=== PATIENT | male | born 1975 | race Caucasian/White ===

== ENCOUNTER 2016-06-16 10:47 | Emergency (ER) | payer SELFPAY ==
[~2016-06-16] VITALS: Ht 165.1 cm; Wt 92.0 kg
[~2016-06-16 10:47] MED LIST: CHLO.12%30 SSP; IBUP800T23 PO
[2016-06-16 10:49] VITALS: BP 142/88; PULSE 78; RESP 16; TEMP 98; O2SAT 98
[2016-06-16] MEDS ORDERED: IBUP-232 PO (11:10)
[2016-06-16] MEDS ORDERED: PENI500T PO (11:10)
--- NOTE | 2016-06-16 11:10 | PD ---
HPI Chief Complaint: Oral / Dental Pain or Problem Time Seen by Provider: 10:56 Travel History International Travel<30 days: No Contact w/Intl Traveler<30days: No Traveled to known affect area: No History of Present Illness HPI 41-year-old male complains of gum irritation and also a lump in the right lower lip. Patient states that he noticed a lump in the right lower lips for the past few days. Patient denies any pain. Patient states that he has some gum irritation. Patient denies any fever chills coughing congestion. PFSH Past Medical History Immunizations Current: Yes Social History Alcohol Use: Yes (ONCE A WEEK) Tobacco Use: Yes (BLACK AND MILDS) Substance Use: No (DENIES SUBSTANCE ABUSE) Allergies-Medications (Allergen,Severity, Reaction): Coded Allergies: Shellfish (Verified Allergy, Severe, SWELLING, 03/11/15) Reported Meds & Prescriptions Reported Meds & Active Scripts Active Ibuprofen 800 Mg Tab 800 Mg PO Q8HR PRN Peridex Oral Rinse (Chlorhexidine Gluconate) 0.12 % Vanda 15 Ml SSP BID 14 Days Review of Systems General / Constitutional: No: Fever Eyes: No: Visual changes HENT: No: Headaches Cardiovascular: No: Chest Pain or Discomfort Respiratory: No: Shortness of Breath Gastrointestinal: No: Abdominal Pain Genitourinary: No: Dysuria Musculoskeletal: No: Pain Skin: No Rash Neurologic: No: Weakness Psychiatric: No: Depression Endocrine: No: Polydipsia Hematologic/Lymphatic: No: Easy Bruising Physical Exam Narrative GENERAL: Well-nourished, well-developed patient. SKIN: Warm and dry. HEAD: Normocephalic. EYES: No scleral icterus. No injection or drainage. NECK: Supple, trachea midline. No JVD or lymphadenopathy. CARDIOVASCULAR: Regular rate and rhythm without murmurs, gallops, or rubs. RESPIRATORY: Breath sounds equal bilaterally. No accessory muscle use. GASTROINTESTINAL: Abdomen soft, non-tender, nondistended. MUSCULOSKELETAL: No cyanosis, or edema. BACK: Nontender without obvious deformity. No CVA tenderness. Patient have a small cystic structure on the right side of the lower lip mucous membrane. Nontender on palpation. No redness no heat. No induration. Patient has minor gum irritation. No evidence of oral abscess. Data Data Last Documented VS Vital Signs Date Time Temp Pulse Resp B/P Pulse Ox O2 Delivery O2 Flow Rate FiO2 06/16/16 10:49 98.0 78 16 142/88 98 Room Air MDM Medical Decision Making Medical Screen Exam Complete: Yes Emergency Medical Condition: Yes Differential Diagnosis Differential diagnosis including cyst, gingivitis, dental abscess. Narrative Course 41-year-old male with a cyst on the lower lip and gum irritation. Diagnosis Primary Impression: Gingivitis Additional Impression: Cyst of lip Patient Instructions: General Instructions Additional Instructions: Take medications as directed. Follow-up with a dentist and oral surgeon. Return if worse. Med/Other Pt SpecificInfo: Prescription(s) given Scripts Penicillin V Potassium 500 Mg Lms282 Mg PO Q8H #30 TAB Ref 0 Prov:Kit Rooney MD 06/16/16 Ibuprofen 600 Mg Sfp311 Mg PO Q8HR PRN (PAIN) #30 TAB Ref 0 Prov:Kit Rooney MD 06/16/16 Disposition: 01 DISCHARGE HOME Condition: Stable Kit Rooney MD Jun 16, 2016 11:10
== END 2016-06-16 11:22 | disposition home or self-care (01) ==
LOC: NEPB 10:47
DX: K05.10 Chronic gingivitis, plaque induced (principal); K13.0 Diseases of lips; Z72.0 Tobacco use
CPT/HCPCS: 99283